=== PATIENT | female | born 1980 | race Asian ===

== ENCOUNTER 2018-08-02 11:21 | Inpatient (IN) | payer OTHER ==
[~2018-08-02] VITALS: Ht 152.4 cm; Wt 72.6 kg
[2018-08-02 11:27] VITALS: Ht 152.4 cm; Wt 72.6 kg
[2018-08-02 11:30] VITALS: BP 105/61; PULSE 98; RESP 18
[2018-08-02] MEDS: LACTATED RINGER'S 1,000 ML IV SCH ×2 (15:15→20:16)
[2018-08-02] MEDS ORDERED: BETAMET NA PHOS/AC(6 MG/ML) 2 ML INJ SYG IM ONE (16:30)
[2018-08-02] MEDS ORDERED: OXYTOCIN 30 UNITS/LR 500 ML IV PRN (16:30)
[2018-08-02] MEDS ORDERED: MISOPROSTOL 200 MCG TAB PR PRN (16:30)
[2018-08-02] MEDS ORDERED: CEFAZOLIN 2 GM/50 ML (PMX) 50 ML IVPB SCH (16:30)
[2018-08-02] MEDS ORDERED: CARBOPROST 250 MCG INJ IM PRN (16:30)
[2018-08-02] MEDS ORDERED: METHYLERGONOVINE 0.2 MG INJ IM PRN (16:30)
[2018-08-02] MEDS ORDERED: OXYTOCIN 30 UNITS/LR 500 ML IV SCH (16:30)
--- NOTE | 2018-08-02 17:16 | HP ---
Date/Time of Note Date/Time of Note DATE: 08/02/18 TIME: 17:08 OB - History Hx of Present Free Text/Dictation August 02, 2018 : 3 Para: 2 Other Concerns: 38-year-old with IUP at 36 weeks and 3 days and GDM diet-controlled as well as history of and prior due to nonreassuring heart tracing here today for BPP due to nonreactive NST. She denies any leaking of fluid vaginal bleeding decreased movement or uterine contractions or any other complaint Noted to have category 2 tracing with episodes of variables and subtle decelerations and NST in triage. For that reason the patient was admitted for receiving steroids, monitoring and likely delivery after 24 hours post second dose of steroid Past Family/Social History * Past Medical, Surgical, Family and Obstetric Histories reviewed from chart. OB Admission Exam Vital Signs Vital Signs Vital Signs Date Temp Pulse Resp B/P (MAP) Pulse Ox O2 O2 Flow FiO2 Time Delivery Rate 08/02/18 98.5 98 18 105/61 Room Air 11:30 (76) Physical Exam HEENT: WNL Lungs: Clear Abdomen: WNL Extremities: Normal Cervical Dilatation: None Effacement: 0% Membranes: Intact Heart Rate: 140's Decelerations: Variable Decelerations (As well as some subtle discoloration with recurrent variable deceleration, category 2 tracing) Varibility: Moderate Contractions on Admission: None Last 72 hours Lab Results CBC & BMP 08/02/18 16:33 OB Assessment/Plan Other Assessment: IUP at 36 weeks and 3 days Non reassuring heart tracing history of prior section, Due to recurrent episodes of vatiable decelerations and subtle decels patient will be admitted for observation Consider to start Bemamethazone for FLM in anticipation of possible early delivery PLan of care discussed with the patient, RN and OB attending was notified who agreed with above plan Continuous monitoring Start STEVE SY MD Aug 02, 2018 17:16
[2018-08-02] MEDS ORDERED: FAMOTIDINE 20 MG TAB PO ONE (21:30)
[2018-08-03] MEDS: LACTATED RINGER'S 1,000 ML IV SCH (03:46)
[2018-08-03] MEDS ORDERED: BETAMET NA PHOS/AC(6 MG/ML) 2 ML INJ SYG IM ONE (05:00)
[2018-08-03] MEDS ORDERED: EPHEDrine SULFATE 50 MG/5 ML SYG ONE (07:00)
[2018-08-03] MEDS ORDERED: CITRIC ACID/NA CITRATE 30 ML CUP PO ONE (08:00)
--- NOTE | 2018-08-03 08:34 | PREAC ---
Date/Time of Note Date/Time of Note DATE: 08/03/18 TIME: 08:32 Anesthesia Eval and Record Evaluation Time Pre-Procedure Interview DATE: 08/03/18 TIME: 08:32 Age 38 Sex female NPO: 8 hrs Preoperative diagnosis repeat csection Planned procedure csection Past Medical History Past Medical History: Includes Cardio: Other (MVP, seeing by award machine operator) : : (3), Gestational age: (36.4) Surgery & Anesthesia Issues No known issue Meds Anticoagulation: No Beta Etta within 24 hr: No Reason Beta Etta not given: Pt. not on B-Etta Current Medications Lactated Ringer's 1,000 ml @ 125 mls/hr Q8H IV Last administered on 08/03/18at 03:46; Admin Dose 125 MLS/HR; Start 08/02/18 at 15:00 Cefazolin Sodium/ Dextrose 50 ml @ 100 mls/hr ONCE IVPB ; Start 08/02/18 at 16:30 Oxytocin/Lactated Ringer's 500 ml @ 125 mls/hr POST IV ; Start 08/02/18 at 16:30 Oxytocin/Lactated Ringer's 500 ml @ 0 mls/hr ONCE PRN IV VAGINAL BLEEDING; Start 08/02/18 at 16:30 Methylergonovine Maleate (Methergine) 0.2 mg ONCE PRN IM VAGINAL BLEEDING; Start 08/02/18 at 16:30 Carboprost Tromethamine (Hemabate) 250 mcg ONCE PRN IM VAGINAL BLEEDING; Start 08/02/18 at 16:30 Misoprostol (Cytotec) 1,000 mcg ONCE PRN VT VAGINAL BLEEDING; Start 08/02/18 at 16:30 Meds reviewed: Yes Allergies Coded Allergies: No Known Allergy (Unverified , 08/02/18) Allergies Reviewed: Yes Labs/Studies Labs Reviewed: Reviewed by anesthesiologist Result Diagram: 08/02/18 1633 08/02/18 1633 Laboratory Tests 08/02/18 16:33 Blood Bank Test 08/02/18 16:33 Antibody Screen NEGATIVE Blood Product Summary Counts Blood Type O POSITIVE Crossmatch Red Blood Cells Rh Immune Globulin Candidate NO test: Positive Studies: ECG (n/a), CXR (n/a) Pre-procedure Exam Last vitals Vital Signs Date Temp Pulse Resp B/P (MAP) Pulse Ox O2 O2 Flow FiO2 Time Delivery Rate 08/02/18 98.5 98 18 105/61 Room Air 11:30 (76) Airway: Adequate mouth opening, Adequate thyromental dist Mallampati: Mallampati I Teeth: Normal Lung: Normal Heart: Normal ASA Physical Status ASA physical status: 2 Emergency: None Planned Anesthetic Neuraxial: Spinal Planned Pain Management Sub-arachniod narcotics Pre-operative Attestations Prior to commencing anesthesia and surgery, the patient was re-evaluated, there was verification of: *The patient's identity *The results of appropriate recent lab work and preoperative vital signs *The above evaluation not changing prior to induction *Anesthetic plan, risk benefits, alternative and complications discussed with p atient/family; questions answered; patient/family understands, accepts and wishes to proceed. ANETTE REVELES MD Aug 03, 2018 08:34
[2018-08-03] MEDS ORDERED: METOCLOPRAMIDE 10 MG INJ ONE (09:32)
[2018-08-03] MEDS ORDERED: morphine SULFATE/PF (10 MG/10 ML) INJ ONE (09:32)
[2018-08-03] MEDS ORDERED: ONDANSETRON 4 MG INJ ONE (09:32)
[2018-08-03] MEDS ORDERED: KETOROLAC 30 MG INJ ONE (09:32)
[2018-08-03] MEDS: CEFAZOLIN 2 GM/50 ML (PMX) 50 ML IVPB SCH ×2 (09:35→18:06)
[2018-08-03] MEDS ORDERED: LACTATED RINGER'S 1,000 ML IV SCH (09:48)
[2018-08-03] MEDS ORDERED: OXYTOCIN 30 UNITS/LR 500 ML IV SCH (09:48)
[2018-08-03] MEDS ORDERED: HYDROCODONE/APAP (5/325) TAB PO PRN ×2 (10:00)
[2018-08-03] MEDS ORDERED: OXYTOCIN 30 UNITS/LR 500 ML IV PRN (10:00)
[2018-08-03] MEDS ORDERED: METHYLERGONOVINE 0.2 MG INJ IM PRN (10:00)
[2018-08-03] MEDS ORDERED: CARBOPROST 250 MCG INJ IM PRN (10:00)
[2018-08-03] MEDS ORDERED: LANOLIN HPA 1 PKT TOP PRN (10:00)
[2018-08-03] MEDS ORDERED: MISOPROSTOL 200 MCG TAB PR PRN (10:00)
[2018-08-03] MEDS ORDERED: METHYLERGONOVINE 0.2 MG TAB PO PRN (10:00)
[2018-08-03] MEDS ORDERED: NA PHOSPHATE/BIPHOS 133 ML ENEMA PR PRN (10:00)
--- NOTE | 2018-08-03 11:05 | SIPON ---
Date/Time of Note Date/Time of Note DATE: 08/03/18 TIME: 11:03 Operative Report Preoperative Diagnosis 36.4 weeks of Severe maternal anemia Variable decelerations. GDM A1 Fibroid uterus. Previous section Postoperative Diagnosis Same Baby boy 9 Operation/Procedure Performed Repeat low segment transverse section Surgeon see signature line preschool assistant teacher Dr Valente Anesthesia: spinal Estimated blood loss: other Transfusion Required none Specimen Placenta Grafts/Implants none Complications none ESTEE BAZZI MD Aug 03, 2018 11:05
--- NOTE | 2018-08-03 11:35 | OPR ---
DATE OF OPERATION: 08/03/2018 PROCEDURE: Repeat low segment transverse section. PREOPERATIVE DIAGNOSES: 36 and 4 weeks' , variable decelerations, severe maternal anemia, g estational diabetes, previous section and fibroid uterus. POSTOPERATIVE DIAGNOSIS: 36 and 4 weeks' , variable decelerations, severe maternal anemia, gestational diabetes, previous section and fibroid uterus. Baby boy, 9. SURGEON: Estee Oneill MD. USER EXPERIENCE DEVELOPER: Dr. Valente. ANESTHESIA: Dr. for spinal anesthesia. COMPLICATIONS: None. PROCEDURE: The patient was given spinal anesthesia, placed in the supine position. The Rucker cathet er was placed in the bladder. A transverse incision was made suprapubically 2 cm up the pubic bone a nd 10 cm in length. The abdominal cavity was reached and the lower uterine segment was observed to b e very thin and almost transparent. The self-retaining retractor was placed. The Keith retractor w as placed in. The incision was made slightly higher on the segment area of the uterus due to the thi nness of the uterus. The uterus was opened in the middle and the incision was increased laterally fo r about 3 inches on either side. The baby's head was delivered. There was clear amniotic fluid. The cord was clamped and cut. The baby was handed over to the neona tologist team and the cord blood was obtained. The baby was a baby boy, 9. The cord blood was obtained. The placenta was removed. The uterus was swabbed out and closed in 2 layers using #0 PDS looped suture, imbedding the first line of sutures. Hemostasis was good. The evaluation of the veronica velvet revealed that there is a pedunculated fibroid that the base of it was on the fundus on the left s hellen of the uterus that was large of about the size of a golf ball with a lot of circulation and a wid e pedicle for which reason we did not touch it. Both tubes and ovaries were normal. The abdominal c avity was cleaned out. The peritoneum was closed with a 2-0 Vicryl suture. The fascia was closed wi th an 0 PDS looped suture, 2-0 Vicryl for the subcutaneous tissue, 3-0 Monocryl subcuticular to the s kin. The patient tolerated the procedure well and left the OR awake and stable. Sponge counts, inst rument counts were correct. Intravenous antibiotics were given for prophylaxis. Blood loss was appr oximately about 500 mL. The urine was clear at the end of the procedure. The patient will be transf used one unit of blood during the procedure since her hemoglobin was 8.9 and the blood loss was about 500 mL. The patient tolerated the procedure well and left the OR awake and stable. Sponge counts, instrument counts, needle counts were correct and intravenous antibiotics were given for prophylaxis. Dictated By: ESTEE JOHN/NTS Conf#: [id number] DID#: [id number]
[2018-08-03] MEDS ORDERED: NALOXONE (0.4 MG/ML) INJ IV PRN (12:00)
[2018-08-03] MEDS ORDERED: ONDANSETRON 4 MG INJ IV PRN ×2 (12:00)
[2018-08-03] MEDS ORDERED: KETOROLAC 30 MG INJ IV PRN (12:00)
[2018-08-03] MEDS ORDERED: morphine 2 MG INJ IV PRN ×3 (12:00)
[2018-08-03] MEDS ORDERED: DIPHENHYDRAMINE 50 MG INJ IV PRN ×2 (12:00)
[2018-08-03] MEDS ORDERED: morphine (1 MG/ML) 10ML SYRINGE IV PRN ×3 (12:00)
[2018-08-03] MEDS: OXYTOCIN 30 UNITS/LR 500 ML IV SCH ×3 (13:37→21:51)
[2018-08-03] MEDS ORDERED: IBUPROFEN 800 MG TAB PO SCH (14:00)
[2018-08-03 14:45] VITALS: BP 97/50; PULSE 83; RESP 17
--- NOTE | 2018-08-03 17:06 | PAC ---
Date/Time of Note Date/Time of Note DATE: 08/03/18 TIME: 17:06 Post-Anesthesia Notes Post-Anesthesia Note Last documented vital signs Vital Signs Date Temp Pulse Resp B/P (MAP) Pulse Ox O2 O2 Flow FiO2 Time Delivery Rate 08/03/18 99.0 83 17 97/50 (66) 93 Room Air 14:45 Activity: WNL Respiratory function: WNL Cardiovascular function: WNL Mental status: Baseline Pain reasonably controlled: Yes Hydration appropriate: Yes Nausea/Vomiting absent: No ANETTE REVELES MD Aug 03, 2018 17:06
--- NOTE | 2018-08-03 19:04 | NUR ---
E.O.S.S. PATIENT IS STABLE. LOCHIA IS MODERATE TO SMALL. TOLERATES CLEAR DIET. BONDING WITH THE BABY. WELL. MOVING TOWARD OUTCOMES.
[2018-08-03 20:25] VITALS: BP 88/53; PULSE 77; RESP 19
[2018-08-03] MEDS: SENNA/DOCUSATE NA (8.6MG/50MG) TAB PO SCH (21:35)
[2018-08-04 00:25] VITALS: BP 90/57; PULSE 99; RESP 19
[2018-08-04] MEDS: OXYTOCIN 30 UNITS/LR 500 ML IV SCH ×3 (00:30→08:25)
[2018-08-04] MEDS: CEFAZOLIN 2 GM/50 ML (PMX) 50 ML IVPB SCH (01:25)
[2018-08-04 04:00] VITALS: BP 92/58; PULSE 86; RESP 17
--- NOTE | 2018-08-04 04:30 | NUR ---
EOSS stable, fundus firm & contracted, light lochia, bonding well with baby, otoole cath in situ- with adequate urine output, on full liquid, for fbs & 2hrs ppbs, for cbc today.
[2018-08-04] MEDS ORDERED: LACTATED RINGER'S 1,000 ML IV SCH (06:30)
[2018-08-04 07:50] VITALS: BP 81/48; PULSE 78; RESP 18
[2018-08-04] MEDS: SENNA/DOCUSATE NA (8.6MG/50MG) TAB PO SCH ×2 (09:53→21:35)
--- NOTE | 2018-08-04 11:09 | PN ---
Date/Time of Note Date/Time of Note DATE: 08/04/18 TIME: 11:08 Assessment/Plan Lines/Catheters IV Catheter Type (from Nrsg): Peripheral IV Subjective 24 Hr Interval Summary Day 1 post Afebrile Feels good. Not up yet Voiding well, tolerating diet Not passing much gas as yet H&H stable Constitutional: no complaints Feeding: advancing diet Pain Control: mild Detailed Summary Eyes: no complaints ENT: no complaints Respiratory: no complaints Cardiovascular: no complaints Gastrointestinal: no complaints Genitourinary: no complaints Musculoskeletal: no complaints Skin: no complaints Neurologic: no complaints Endocrine: no complaints Lymphatic: no complaints Psychological: no complaints, nl mood/affect Immunologic: no complaints Exam/Review of Systems Vital Signs Vitals Vital Signs Date Temp Pulse Resp B/P (MAP) Pulse Ox O2 O2 Flow FiO2 Time Delivery Rate 08/04/18 98.0 78 18 81/48 (59) 98 Room Air 07:50 Intake and Output 08/03/18 08/03/18 08/04/18 1515:00 23:00 07:00 IntakeIntake Total 1000 ml 1700 ml 1150 ml OutputOutput Total 1049 ml 200 ml 1000 ml BalanceBalance -49 ml 1500 ml 150 ml Exam Constitutional: alert, oriented, well developed Psych: no complaints, nl mood/affect Head: normocephalic, atraumatic Eyes: nl conjunctiva, EOMI, nl lids, nl sclera ENMT: nl external ears & nose, nl lips & teeth, nl nasal mucosa & septum, mucosa pink and moist Neck: supple, non-tender Respiratory: clear to auscultation, normal air movement Cardiovascular: regular rate and rhythm, nl pulses Gastrointestinal: soft, nl liver, spleen, non-tender Musculoskeletal: nl extremities to inspection, nl gait and stance Extremities: normal pulses Neurological: OUTSIDE RIGGER II-XII intact, nl mental status, nl speech, nl strength Skin: nl turgor, rash or lesions Lymph: nl lymph nodes Results Result Diagram: 08/04/18 0733 08/02/18 1633 ESTEE BAZZI MD Aug 04, 2018 11:09
[2018-08-04] MEDS ORDERED: BISACODYL (EC) 5 MG TAB PO ONE (11:30)
[2018-08-04] MEDS: IBUPROFEN 800 MG TAB PO SCH ×2 (13:17→21:35)
[2018-08-04] MEDS ORDERED: CEPASTAT LOZENGE MT PRN (13:30)
[2018-08-04] MEDS: AZITHROMYCIN 250 MG TAB PO SCH (15:15)
[2018-08-04 16:00] VITALS: BP 89/52; PULSE 92; RESP 18
--- NOTE | 2018-08-04 18:06 | NUR ---
EOSS: VSS. AMBULATING AND VOIDING. BONDING WELL WITH THE BABY. BOTTLE FEEDING TODAY. NO OTHER C/O AT THIS TIME.
[2018-08-04 20:05] VITALS: BP 98/50; PULSE 77; RESP 18
--- NOTE | 2018-08-05 00:15 | NUR ---
breast pump initiated & instructed on how to use it & education provided the benefits . mom verbalized understanding.
[2018-08-05 03:59] VITALS: BP 99/54; PULSE 78; RESP 17
--- NOTE | 2018-08-05 04:19 | NUR ---
EOSS v/s stable, fundus firm & contracted- with abdominal binder, light lochia, voiding well, for cbc today- for WBC high, ambulated ad david.
[2018-08-05] MEDS: IBUPROFEN 800 MG TAB PO SCH ×3 (05:39→21:41)
--- NOTE | 2018-08-05 07:48 | OPPN ---
Date/Time of Note Date/Time of Note 5DATE: 08/04/18 TIME: 07:47 A 38 year female s/p duramorph for post op pain POD#1 is doing fine, No pain, itching, headache, N/V, neural deficit. Anesthesia Follow up Anesthesia Follow up Last documented vital signs Vital Signs Date Temp Pulse Resp B/P (MAP) Pulse Ox O2 O2 Flow FiO2 Time Delivery Rate 08/05/18 98.8 78 17 99/54 (69) Room Air 03:59 08/04/18 98 07:50 Respiratory function: WNL Cardiovascular function: WNL ANETTE REVELES MD Aug 05, 2018 07:48
[2018-08-05 07:50] VITALS: BP 85/50; PULSE 81; RESP 18
[2018-08-05] MEDS: SENNA/DOCUSATE NA (8.6MG/50MG) TAB PO SCH ×2 (09:30→21:41)
[2018-08-05] MEDS: AZITHROMYCIN 250 MG TAB PO SCH (09:31)
--- NOTE | 2018-08-05 14:15 | PN ---
Date/Time of Note Date/Time of Note DATE: 08/05/18 TIME: 14:14 Assessment/Plan Lines/Catheters IV Catheter Type (from Nrsg): Peripheral IV Subjective 24 Hr Interval Summary Day 2 post Doing well Passing gases had a small bowel movement Still very bloated with gas Needs ambulation Incision very good healing well Constitutional: no complaints Feeding: advancing diet Pain Control: mild Detailed Summary Eyes: no complaints ENT: no complaints Respiratory: no complaints Cardiovascular: no complaints Gastrointestinal: no complaints Genitourinary: no complaints Musculoskeletal: no complaints Skin: no complaints Neurologic: no complaints Endocrine: no complaints Lymphatic: no complaints Psychological: no complaints, nl mood/affect Immunologic: no complaints Exam/Review of Systems Vital Signs Vitals Vital Signs Date Temp Pulse Resp B/P (MAP) Pulse Ox O2 O2 Flow FiO2 Time Delivery Rate 08/05/18 98.2 81 18 85/50 (62) Room Air 07:50 08/04/18 98 07:50 Intake and Output 08/04/18 08/04/18 08/05/18 1515:00 23:00 07:00 IntakeIntake Total 500 ml OutputOutput Total 1500 ml BalanceBalance 500 ml -1500 ml Exam Constitutional: alert, oriented, well developed Psych: no complaints, nl mood/affect Head: normocephalic, atraumatic Eyes: nl conjunctiva, EOMI, nl lids, nl sclera ENMT: nl external ears & nose, nl lips & teeth, nl nasal mucosa & septum, mucosa pink and moist Neck: supple, non-tender Respiratory: clear to auscultation, normal air movement Cardiovascular: regular rate and rhythm, nl pulses Gastrointestinal: soft, nl liver, spleen, non-tender Musculoskeletal: nl extremities to inspection, nl gait and stance Extremities: normal pulses Neurological: SUPERVISOR CELL MAINTENANCE II-XII intact, nl mental status, nl speech, nl strength Skin: nl turgor, rash or lesions Lymph: nl lymph nodes Results Result Diagram: 08/05/18 0728 08/02/18 1633 ESTEE BAZZI MD Aug 05, 2018 14:15
[2018-08-05] MEDS ORDERED: BISACODYL (EC) 5 MG TAB PO ONE (14:30)
[2018-08-05 15:36] VITALS: BP 90/56; PULSE 88; RESP 18
--- NOTE | 2018-08-05 17:58 | NUR ---
EOSS: VSS. AMBULATING IN THE HALLS. DULCOLAX GIVEN PER ORDERS. BREAST FEEDING WELL. GOOD BONDING WITH THE BABY. NO OTHER C/O AT THIS TIME.
[2018-08-05 22:13] VITALS: BP 101/55; PULSE 83; RESP 18
[2018-08-06] MEDS: NEOMYC/POLYMYX/BACIT 30 GM OINT TOP SCH ×2 (02:33→09:13)
[2018-08-06 04:30] VITALS: BP 97/55; PULSE 62; RESP 18
--- NOTE | 2018-08-06 05:35 | NUR ---
E.O.S.S. VSS and Systemic sounds wnl. Bonding well with baby. Feeding on demand.
--- NOTE | 2018-08-06 05:51 | NUR ---
Open blister found during shift assessment on left lower abdomen. Reported to MD and order fulfilled.
[2018-08-06] MEDS: IBUPROFEN 800 MG TAB PO SCH ×2 (06:20→13:37)
[2018-08-06 08:30] VITALS: BP 101/56; PULSE 61; RESP 16
[2018-08-06] MEDS ORDERED: MEASLES,MUMPS,RUBELLA VACCINE INJ SC* ONE (09:00)
[2018-08-06] MEDS: SENNA/DOCUSATE NA (8.6MG/50MG) TAB PO SCH (09:00)
[2018-08-06] MEDS ORDERED: DIPHTH/TET/ACEL PERTUSS (ADULT) 0.5 ML VIAL IM* ONE (09:00)
[2018-08-06] MEDS: AZITHROMYCIN 250 MG TAB PO SCH (09:12)
--- NOTE | 2018-08-06 11:37 | PD.PPDC ---
TAX MANAGER Discharge Instruction Condition [id number] Patient Condition: [id number] Good Diet [id number] Diet: Aejqp9m Resume Regular Diet Wound/Drain Care Instructions [id number] Wound/Drain Care [id number] Remove Steri Strips in 1 week Instructions: Wash with soap and water Keep clean and dry Follow-up Follow-up with Physician: 1, Week/Weeks Return to clinic for [id number] RUBBER CUTTING MACHINE TENDER Instructions: Bmtbh6l Fever greater than 101 Chills Worsening abdominal pain Excessive Vaginal Bleeding More than 2 pads per hour Unable to tolerate diet [id number] OB Instructions: Pycft6z Breast Tenderness Depression Blurried Vision Headache Rirdy4Pa Surgical Instructions: Csjoe9m Incisional Drainage Incisional Redness ESTEE BAZZI MD Aug 06, 2018 11:37
--- NOTE | 2018-08-06 14:05 | NSTRPT ---
NST Information Datetime Report Generated by CPN: 08/06/2018 14:05 Datetime: 08/02/2018 09:27 NST Information EGA: 36.3 Test Number: 2 Time on Monitor: 08/02/2018 09:33 Time off Monitor: 08/02/2018 10:26 NST Duration (Min): 53 Reason for NST: Decreased Movement; Diabetes Mellitus; Other Reason for NST Other: A1DM Test and Monitor Explained: Monitor Explained; Test Explained; Verbalized Understanding Pulse: 87 Resp: 18 SBP: 91 DBP: 53 Test Evaluation NST Interventions: Reposition Patient Patient States Movement: Present Contraction Frequency: 7-11/30-90/MILD, pain level 0 FHR Baseline : 135 Variability: Moderate 6-25bpm Accelerations: 10X10 Decelerations: Variable FHR Category: Category II NST Results: Non-Reactive Provider Notified: Dr Suarez re ucs _ nonreactive nst/Dr Ramesh Comments: pt to u/s but pt refused to have pt get us-states "she is getting too many ultras ounds" Pt states she has been feeling ucs since yesterday FBS 85 variable decel faby [address] office _ report given-state they will page the doctor @ 1025/ call placed to cellphone _ message left with report of uc pattern, nonreactive nst < pt is previous CS _ request she call NSt 1040-Dr Oneill requests the laborist be notifed of pt status as she is at the dentist Report toMindi Amos RN in triage who will notify Dr Ortiz, laborist . records faxed to [facility] Electronically Signed By E-Signature: with User ID: [email or web address] Datetime: 07/27/2018 09:21 NST Information EGA: 35.4 Datetime: 07/27/2018 09:08 NST Duration (Min): 30
--- NOTE | 2018-08-06 15:20 | DS ---
Date/Time of Note Date/Time of Note DATE: 08/06/18 TIME: 15:13 Obstetrical Discharge Record Final Diagnosis Final Diagnosis: Term delivered Other Final Diagnosis 36 and 4 weeks Variable decelerations Previous section Severe maternal anemia Fibroid uterus Vaginal Delivery Other Delivery information intraoperative blood transfusion Patient came for NST BPP for gestational diabetes. She was found to be severely anemic with variable decelerations for which a repeat section was done The patient did very well after surgery During the procedure we gave her 1 unit of packed cells due to her hemoglobin of 8.9 She recuperated very well with a postop CBC that was the same as preop after 1 unit of transfusion. She was tolerating diet voiding well with bowel movement with a clean incision and normal blood sugar levels at the time of discharge. She was supposed to see me in 1 week and pain medication was given and instructions on how to take care of herself at home Section Section: Repeat Complications Gestational Diabetes, Other Condition on Discharge Physical Assessment Voiding: Yes Bowel Movement: Yes Breast: Soft, non-tender, Filling Fundus: Firm Calf Tenderness: No Patient Condition: Good ESTEE BAZZI MD Aug 06, 2018 15:20
--- NOTE | 2018-08-06 15:40 | NUR ---
d/c via w/c with baby in arms and all belongings taken, no distress noted.
== END 2018-08-06 15:40 | disposition home or self-care (01) | DRG 788 ==
LOC: OBT 11:21 → L-D 11:22 → OBT 16:30 → L-D 16:40 → PP1 08-03 14:29
PROVIDERS: ADMIT Obstetrics & Gynecology; ATTEND Obstetrics & Gynecology
PROC: 30233N1 Transfusion of Nonautologous Red Blood Cells into Peripheral Vein, Percutaneous Approach (ICD-10-PCS; 2018-08-03)
PROC: 10D00Z1 Extraction of Products of Conception, Low, Open Approach (ICD-10-PCS; principal; 2018-08-03 10:00)
DX: O76 Abnormality in fetal heart rate and rhythm complicating labor and delivery (principal); O34.211 Maternal care for low transverse scar from previous cesarean delivery; O24.420 Gestational diabetes mellitus in childbirth, diet controlled; O34.219 Maternal care for unspecified type scar from previous cesarean delivery; D64.9 Anemia, unspecified; O99.02 Anemia complicating childbirth; O34.13 Maternal care for benign tumor of corpus uteri, third trimester; D25.9 Leiomyoma of uterus, unspecified; Z3A.36 36 weeks gestation of pregnancy; Z37.0 Single live birth
CPT/HCPCS: 36430; 76818; 82947; 82962; 85025; 85610; 85730; 86592; 86850; 86900; 86901; 86920; 87340; 96360; 99464; G0463; J0690; J0702; J1885; J2274; J2405; J2590; J2765; J7120; P9016